=== PATIENT | female | born 1940 | race Caucasian/White ===

== ENCOUNTER → 2019-06-19 | Outpatient (CLI) | payer MEDICARE, OTHER ==
[~2019-06-19] MED LIST: ALPR.5 PO; Advil200 M1 PO; CYCL10 PO; DULO30 PO; IBUP600 PO; METO25ER PO; MOMENI; Norco 5-325 Ta1 EACH PO; OLME20 PO; Questran4 GM PO; TRAM50 PO
== END ==
LOC: LAB EV 16:30 → LAB SHORT 16:30
DX: M50.30 Other cervical disc degeneration, unspecified cervical region (principal); M51.36 Other intervertebral disc degeneration, lumbar region; M17.9 Osteoarthritis of knee, unspecified; G89.4 Chronic pain syndrome
CPT/HCPCS: G0480

== ENCOUNTER → 2019-12-20 | Outpatient (CLI) | payer MEDICARE, OTHER | END | disposition home or self-care (01) | LOC: LAB SHORT 17:46 → LAB EV 17:46 | DX: N39.0 Urinary tract infection, site not specified (principal) | CPT/HCPCS: 87077; 87086; 87186 ==

== ENCOUNTER → 2020-01-02 | Outpatient (CLI) | payer MEDICARE, OTHER | END | disposition home or self-care (01) | LOC: LAB SHORT 16:31 → LAB EV 16:31 | DX: N39.0 Urinary tract infection, site not specified (principal) | CPT/HCPCS: 87086 ==

== ENCOUNTER → 2020-02-12 | Outpatient (CLI) | payer MEDICARE, OTHER | LOC: LAB SHORT 15:30 → LAB EV 15:30 | DX: R35.0 Frequency of micturition (principal) | CPT/HCPCS: 87086 ==

== ENCOUNTER → 2020-05-05 | Outpatient (CLI) | payer MEDICARE, OTHER ==
[~2020-05-05] MED LIST changes: +ALLEGRA ALLERG180 MG PO; +Avapro300 MG PO; +ESCI20 PO; +PROP10 PO; +Percocet 5-3251 EACH PO; +SUMA25 PO; +VITAMIN D32000 UNIT PO; +XARELTO10 M3 PO
== END ==
LOC: LAB 08:46 → LAB SHORT 08:46
DX: D48.5 Neoplasm of uncertain behavior of skin (principal)
CPT/HCPCS: 88305

== ENCOUNTER → 2020-06-26 | Outpatient (CLI) | payer MEDICARE, OTHER | END | disposition home or self-care (01) | LOC: LAB 18:48 → LAB SHORT 18:48 | DX: R30.9 Painful micturition, unspecified (principal) | CPT/HCPCS: 87086 ==

== ENCOUNTER 2020-07-01 09:33 | Day surgery (SDC) | payer MEDICARE, OTHER ==
[~2020-07-01] VITALS: Ht 167.6 cm; Wt 116.6 kg
[~2020-07-01 09:33] MED LIST changes: -ALLEGRA ALLERG180 MG PO; -Avapro300 MG PO; -ESCI20 PO; -PROP10 PO; -Percocet 5-3251 EACH PO; -SUMA25 PO; -VITAMIN D32000 UNIT PO; -XARELTO10 M3 PO
[2020-07-01] MEDS ORDERED: PROP10 PO (10:23)
[2020-07-01] MEDS ORDERED: ESCI20 PO (10:23)
[2020-07-01] MEDS ORDERED: Avapro300 MG PO (10:24)
[2020-07-01] MEDS ORDERED: SUMA25 PO (10:25)
[2020-07-01] MEDS ORDERED: VITAMIN D32000 UNIT PO (10:25)
[2020-07-01] MEDS ORDERED: ALLEGRA ALLERG180 MG PO (10:26)
--- NOTE | 2020-07-01 10:50 | NUR ---
PT TO SDS VIA . History, Chart, Medications and Allergies reviewed before start of procedure. Lungs clear T/O to Auscultation. Patient confirms NPO status and agrees with scheduled surgery. Patient reports completing Chlorhexadine shower X2 prior to admission to hospital. PT REPORTS INCONTINCE, RESTROOM USED PRIOR TO ADMISSION. UNDERWEAR AND PAD IN PLACE AT THIS TIME.
[2020-07-02 04:23] LABS: BASOPHILS ABSOLUTE AUTO 0.03 K/mm3 (0.00-0.23); BASOPHILS PERCENT AUTO 0 % (0-2); EOSINOPHILS PERCENT AUTO 0 % (0-6); Hematocrit 41.7 % (33.0-51.0); Hemoglobin 13.6 g/dL (11.5-16.0); IMMATURE GRAN ABSOLUTE AUTO 0.09 K/mm3 (0.00-0.10); IMMATURE GRAN PERCENT AUTO 0 % (0-1); LYMPHOCYTES ABSOLUTE AUTO 1.23 K/mm3 (0.84-5.20); LYMPHOCYTES PERCENT AUTO 6 % (21-46); MONOCYTES ABSOLUTE AUTO 1.06 K/mm3 (0.16-1.47); MONOCYTES PERCENT AUTO 5 % (4-13); Mean Corpuscular HGB 31.7 pg (26.0-34.0); Mean Corpuscular HGB Conc 32.6 g/dL (31.5-36.5); Mean Corpuscular Volume 97 fL (80-100); Mean Platelet Volume 10.6 fL (9.1-12.4); NEUTROPHILS ABSOLUTE AUTO 19.13 K/mm3 (1.96-9.15); NEUTROPHILS PERCENT AUTO 89 % (41-73); Platelet Count 260 K/mm3 (150-400); RDW Coefficient Variation 13.2 % (11.7-14.2); RDW Standard Deviation 47.8 fL (35.1-46.3); Red Blood Cell Count 4.29 M/mm3 (3.80-5.20); White Blood Cell Count 21.54 K/mm3 (4.00-11.30)
[2020-07-02 04:40] LABS: Calcium, Blood 8.9 mg/dL (8.5-10.1); Creatinine, Blood 1.08 mg/dL (0.40-1.00); Potassium, Blood 4.8 mmol/L (3.5-5.5)
--- NOTE | 2020-07-02 05:47 | NUR ---
SHIFT SUMMARY LYING IN SEMI FOWLERS WITH EYES CLOSED, HAS RESTED WELL THROUGHOUT SHIFT. MEDICATED FOR PAIN WITH OXY X1. POLAR JA IN PLACE TO SURGICAL SITE AND PT REPOSITIONES FOR COMFORT. ASSISTED TO BATHROOM SEVERAL TWICE TO URINATE. LEFT FA SL POWERGLIDE IS PATENT, FLUSHES WITH EASE WHEN PULLED BACK ON GENTLY, APPEARS POSITIONAL. AQUACEL AND TERRELL WRAP TO LEFT KNEE ARE C/D/I. GOOD DISTAL PULSES NOTED. ABLE TO WIGGLE TOES WITH EASE. DENIES FURTHER NEEDS OR WANTS AT THIS TIME. SAFETY MEASURES IN PLACE. WILL CONTINUE TO MONITOR AND GIVE HAND OFF TO ONCOMING SHIFT USING SBAR DURING BEDSIDE REPORT.
[2020-07-02] MEDS ORDERED: Percocet 5-3251 EACH PO (13:48)
[2020-07-02] MEDS ORDERED: XARELTO10 M3 PO (13:49)
--- NOTE | 2020-07-02 14:10 | NUR ---
DISCHARGE PT CLEARED THERAPY. PAIN WELL CONTROLLED. EATING, DRINKING, VOIDING WELL. SCRIPTS, DRSGS, & POLAR PACK SENT. ESCORTED OUT VIA W/C.
== END 2020-07-02 14:27 | disposition home or self-care (01) ==
LOC: ORSCMMR 09:33 → ORD 10:45 → ORSCMMR 10:45 → ORD 11:00 → SURS 14:42 → ORSCMMR 07-02 14:27 → SURS 07-02 14:27
PROVIDERS: Orthopaedic Surgery
PROC: 0SRD0JA Replacement of Left Knee Joint with Synthetic Substitute, Uncemented, Open Approach (ICD-10-PCS; principal; 2020-07-01 10:45)
PROC: 8E0Y0CZ Robotic Assisted Procedure of Lower Extremity, Open Approach (ICD-10-PCS; principal; 2020-07-01 10:45)
DX: M17.12 Unilateral primary osteoarthritis, left knee (principal); I10 Essential (primary) hypertension; E78.5 Hyperlipidemia, unspecified; G47.33 Obstructive sleep apnea (adult) (pediatric); K21.9 Gastro-esophageal reflux disease without esophagitis; E03.9 Hypothyroidism, unspecified; M79.7 Fibromyalgia; E66.01 Morbid (severe) obesity due to excess calories; Z68.41 Body mass index [BMI] 40.0-44.9, adult; Z79.899 Other long term (current) drug therapy
CPT/HCPCS: 27447; S2900; 36415; 73560-LT; 80048; 85025; 88300; 97110; 97116; 97161; 97530; A9270; C1776; J0171; J0690; J0735; J1100; J1885; J2250; J2370; J2405; J2704; J2795; J3010; J7120

== ENCOUNTER → 2020-07-09 | Outpatient (CLI) | payer MEDICARE, OTHER ==
[~2020-07-09] MED LIST changes: +ALLEGRA ALLERG180 MG PO; +Avapro300 MG PO; +ESCI20 PO; +PROP10 PO; +Percocet 5-3251 EACH PO; +SUMA25 PO; +VITAMIN D32000 UNIT PO; +XARELTO10 M3 PO
[2020-07-09 11:59] LABS: Source, Urine Clean Catch
[2020-07-09 12:05] LABS: Appearance, Urine Clear (Clear); Bilirubin, Urine Neg (Neg); Blood, Urine Neg (Neg); Color, Urine Yellow (P-Yellow); Glucose Qualitative, Urine Neg (Normal); Ketones, Urine Neg (Neg); Leukocyte Esterase, Urine Neg (Neg); Nitrite, Urine Neg (Neg); Protein, Urine Neg (Neg); Specific Gravity, Urine 1.015 (1.003-1.022); Urobilinogen, Urine 1+ (Normal)
== END ==
LOC: LAB SHORT 09:00 → LAB EV 09:00 → LAB FUT 07-08 16:40
PROVIDERS: Physician Assistant
DX: R35.8 Other polyuria (principal)
CPT/HCPCS: 81003

== ENCOUNTER → 2020-10-29 | Outpatient (CLI) | payer MEDICARE, OTHER | LOC: LAB SHORT 14:55 → LAB 14:55 | DX: R35.8 Other polyuria (principal); Z88.0 Allergy status to penicillin; Z88.1 Allergy status to other antibiotic agents; Z88.5 Allergy status to narcotic agent; Z91.018 Allergy to other foods | CPT/HCPCS: 87077; 87086; 87186 ==

== ENCOUNTER → 2020-12-15 | Outpatient (CLI) | payer MEDICARE, OTHER ==
[2020-12-15 17:17] LABS: Source, Urine Clean Catch
[2020-12-15 18:29] LABS: Appearance, Urine Clear (Clear); Blood, Urine 1+ (Neg); Color, Urine Yellow (P-Yellow); Glucose Qualitative, Urine Neg (Neg); Ketones, Urine Neg (Neg); Leukocyte Esterase, Urine 1+ (Neg); Nitrite, Urine Neg (Neg); Protein, Urine 2+ (Neg); Specific Gravity, Urine 1.025 (1.003-1.022); Urobilinogen, Urine NORM (Normal)
[2020-12-15 18:59] LABS: Bilirubin, Urine 1+ (Neg)
[2020-12-15 19:00] LABS: Bacteria Mod /hpf; Mucus Light (0-Heavy); Red Blood Cells, Urine 0-2 /hpf (0-2); Squamous Epithelial Cells Few /hpf (Few)
== END | disposition home or self-care (01) ==
LOC: LAB SHORT 17:15 → LAB 17:15
PROVIDERS: Obstetrics & Gynecology
DX: R39.15 Urgency of urination (principal)
CPT/HCPCS: 81001; 87086

== ENCOUNTER → 2021-09-21 | Outpatient (CLI) | payer MEDICARE, OTHER ==
[2021-09-21 17:34] LABS: Source, Urine Clean Catch
[2021-09-21 19:51] LABS: Appearance, Urine Hazy (Clear); Bilirubin, Urine Neg (Neg); Blood, Urine Neg (Neg); Color, Urine Yellow (P-Yellow); Glucose Qualitative, Urine Neg (Neg); Ketones, Urine Neg (Neg); Leukocyte Esterase, Urine 1+ (Neg); Nitrite, Urine Neg (Neg); Protein, Urine 2+ (Neg); Specific Gravity, Urine 1.025 (1.003-1.022); Urobilinogen, Urine NORM (Normal)
[2021-09-21 20:06] LABS: Squamous Epithelial Cells Mod /hpf (Few)
[2021-09-21 20:07] LABS: Bacteria Many /hpf; Hyaline Casts 0-2 /lpf (0-2); Red Blood Cells, Urine 0-2 /hpf (0-2)
== END | disposition home or self-care (01) ==
LOC: LAB SHORT 17:32
PROVIDERS: Obstetrics & Gynecology
DX: R39.15 Urgency of urination (principal)
CPT/HCPCS: 81001; 87077; 87086; 87186

== ENCOUNTER → 2022-12-17 | Outpatient (CLI) | payer MEDICARE, OTHER ==
[2022-12-17 17:44] LABS: Albumin, Blood 3.3 g/dL (3.4-5.0); Anion Gap 11 mmol/L (6-16); Blood Urea Nitrogen 28 mg/dL (8-24); CO2, Blood 25 mmol/L (21-32); Calcium, Blood 9.1 mg/dL (8.5-10.1); Chloride, Blood 104 mmol/L (98-108); Creatinine, Blood 1.12 mg/dL (0.40-1.00); Free Thyroxine 1.11 ng/dL (0.70-1.60); Glomerular Filtration Rate 49 (60-); Glucose, Blood 107 mg/dL (70-99); Magnesium, Blood 2.1 mg/dL (1.6-2.4); Phosphorus, Blood 3.3 mg/dL (2.5-4.9); Potassium, Blood 4.4 mmol/L (3.5-5.5); Sodium, Blood 140 mmol/L (136-145); Thyroid Stimulating Hormone 1.231 uIU/mL (0.360-4.800)
== END | disposition home or self-care (01) ==
LOC: LAB SHORT 17:21 → LAB 17:21
PROVIDERS: Chiropractor
DX: E55.9 Vitamin D deficiency, unspecified (principal); E05.90 Thyrotoxicosis, unspecified without thyrotoxic crisis or storm
CPT/HCPCS: 80069; 82306; 83735; 84439; 84443

== ENCOUNTER → 2023-05-17 | Outpatient (CLI) | payer MEDICARE, OTHER ==
[2023-05-17 15:23] LABS: Creatinine, Urine Random 53.1 mg/dL (27.00-270.00); Protein, Urine Random 10.8 mg/dL (0.0-11.9); Protein/Creat Ratio, Ur Random 0.2
== END ==
LOC: LAB SHORT 05-16 16:00 → LAB 05-16 16:00
PROVIDERS: Hospitalist
DX: N18.32 Chronic kidney disease, stage 3b (principal)
CPT/HCPCS: 82570; 84156

== ENCOUNTER → 2023-10-11 | Outpatient (CLI) | payer MEDICARE, OTHER ==
[~2023-10-11] MED LIST changes: +ACET325 PO; +ALENDRONATE SOD35 M6 PO; +Atarax10 MG PO; +Bumetanide2 MG PO; +FLUTICASONE-SA1 EAC9 INH; +IMITREX50 M2 PO; +KLOR-CON 1010 ME9 PO; +METHIMAZOLE5 M1 PO; +MICONAZOLE NITR85 GM TOP; +SPIRONOLACTONE25 MG PO; +TOPROL XL50 MG PO; +TRIDERM28.4 GM TOP; +VITAMIN D5000 UNIT PO
[2023-10-11 17:55] LABS: BASOPHILS ABSOLUTE AUTO 0.08 K/mm3 (0.00-0.23); BASOPHILS PERCENT AUTO 1 % (0-2); EOSINOPHILS ABSOLUTE AUTO 0.22 K/mm3 (0.00-0.68); EOSINOPHILS PERCENT AUTO 2 % (0-6); Hematocrit 42.6 % (33.0-51.0); Hemoglobin 14.8 g/dL (11.5-16.0); IMMATURE GRAN ABSOLUTE AUTO 0.13 K/mm3 (0.00-0.10); IMMATURE GRAN PERCENT AUTO 1 % (0-1); LYMPHOCYTES ABSOLUTE AUTO 1.18 K/mm3 (0.84-5.20); LYMPHOCYTES PERCENT AUTO 11 % (21-46); MONOCYTES ABSOLUTE AUTO 1.06 K/mm3 (0.16-1.47); MONOCYTES PERCENT AUTO 10 % (4-13); Mean Corpuscular HGB 33.7 pg (26.0-34.0); Mean Corpuscular HGB Conc 34.7 g/dL (31.5-36.5); Mean Corpuscular Volume 97 fL (80-100); NEUTROPHILS ABSOLUTE AUTO 8.09 K/mm3 (1.96-9.15); NEUTROPHILS PERCENT AUTO 75 % (41-73); NRBC ABSOLUTE 0.02 K/mm3 (0.00-0.02); NRBC Auto 0.2 /100 WBC (0.0-0.2); RDW Coefficient Variation 14.2 % (11.7-14.2); RDW Standard Deviation 50.8 fL (35.1-46.3); Red Blood Cell Count 4.39 M/mm3 (3.80-5.20); White Blood Cell Count 10.76 K/mm3 (4.00-11.30)
[2023-10-11 17:57] LABS: Albumin, Blood 3.5 g/dL (3.4-5.0); Albumin/Globulin Ratio 0.7 (0.8-1.8); Bilirubin, Total 0.9 mg/dL (0.1-1.0); Bun/Creatinine Ratio 32.3 (12.0-20.0); Calcium, Blood 10.5 mg/dL (8.5-10.1); Creatinine, Blood 1.95 mg/dL (0.40-1.00); Globulin, Blood 4.8 g/dL (2.2-4.0); Total Protein, Blood 8.3 g/dL (6.4-8.2)
[2023-10-11 18:49] LABS: Mean Platelet Volume 11.8 fL (9.1-12.4); Platelet Count 228 K/mm3 (150-400)
== END | disposition home or self-care (01) ==
LOC: LAB EV 16:38 → LAB SHORT 16:38
PROVIDERS: Family Medicine
DX: I10 Essential (primary) hypertension (principal)
CPT/HCPCS: 80053; 85025

== ENCOUNTER 2023-11-04 18:05 | Inpatient (IN) | payer MEDICARE, OTHER ==
[~2023-11-04] VITALS: Ht 167.6 cm; Wt 141.3 kg
[2023-11-04 19:03] LABS: BASOPHILS ABSOLUTE AUTO 0.07 K/mm3 (0.00-0.23); BASOPHILS PERCENT AUTO 1 % (0-2); EOSINOPHILS ABSOLUTE AUTO 0.18 K/mm3 (0.00-0.68); EOSINOPHILS PERCENT AUTO 1 % (0-6); Hematocrit 45.8 % (33.0-51.0); Hemoglobin 15.1 g/dL (11.5-16.0); IMMATURE GRAN ABSOLUTE AUTO 0.16 K/mm3 (0.00-0.10); IMMATURE GRAN PERCENT AUTO 1 % (0-1); LYMPHOCYTES PERCENT AUTO 10 % (21-46); MONOCYTES ABSOLUTE AUTO 1.65 K/mm3 (0.16-1.47); MONOCYTES PERCENT AUTO 11 % (4-13); Mean Corpuscular HGB 33.6 pg (26.0-34.0); Mean Corpuscular Volume 102 fL (80-100); Mean Platelet Volume 10.9 fL (9.1-12.4); NEUTROPHILS ABSOLUTE AUTO 11.17 K/mm3 (1.96-9.15); NEUTROPHILS PERCENT AUTO 76 % (41-73); NRBC ABSOLUTE 0.02 K/mm3 (0.00-0.02); NRBC Auto 0.1 /100 WBC (0.0-0.2); Platelet Count 189 K/mm3 (150-400); RDW Coefficient Variation 14.8 % (11.7-14.2); RDW Standard Deviation 55.1 fL (35.1-46.3); White Blood Cell Count 14.63 K/mm3 (4.00-11.30)
[2023-11-04 19:26] LABS: Albumin, Blood 2.9 g/dL (3.4-5.0); Albumin/Globulin Ratio 0.5 (0.8-1.8); Bilirubin, Total 1.1 mg/dL (0.1-1.0); Bun/Creatinine Ratio 25.3 (12.0-20.0); Calcium, Blood 9.5 mg/dL (8.5-10.1); Creatinine, Blood 1.94 mg/dL (0.40-1.00); Globulin, Blood 5.5 g/dL (2.2-4.0); Potassium, Blood 4.2 mmol/L (3.5-5.5); Total Protein, Blood 8.4 g/dL (6.4-8.2)
[2023-11-04 19:34] LABS: Influenza A, PCR NEGATIVE (NEGATIVE); Influenza B, PCR NEGATIVE (NEGATIVE); Resp Syncytial Virus, PCR NEGATIVE (NEGATIVE); SARS-Cov-2 (COVID-19) PCR, MMC NEGATIVE (NEGATIVE)
[2023-11-04] MEDS ORDERED: NS 1,000 ML IV SCH (20:40)
[2023-11-04 20:57] LABS: Thyroid Stimulating Hormone 0.959 uIU/mL (0.360-4.800)
[2023-11-04] MEDS ORDERED: Diltiazem HCl 5 MG / ML 5ML Vial IV ONE ×2 (21:15→22:50)
[2023-11-04] MEDS ORDERED: dilTIAZem HCL 100 MG in NS 100 ML IV SCH (22:50)
[2023-11-04] MEDS ORDERED: Furosemide 10 MG/ML 4ML Vial IV ONE (22:50)
[2023-11-05] VITALS (23 sets, daily range): BP systolic 92–160; BP diastolic 55–139
[2023-11-05] MEDS ORDERED: Bisacodyl 10 MG Supp PR PRN ×2 (00:50→01:35)
[2023-11-05] MEDS ORDERED: Acetaminophen 325 MG TABLET PO PRN ×2 (00:50→01:35)
[2023-11-05] MEDS ORDERED: Magnesium Hydroxide Conc 10 ML UDC PO PRN ×2 (00:50→01:35)
[2023-11-05] MEDS ORDERED: Triamcinolone 0.1% Lotion 60 GM TOP PRN ×2 (01:05→01:35)
[2023-11-05] MEDS ORDERED: SUMAtriptan succinate 50 MG Tab PO PRN ×2 (01:05→01:35)
[2023-11-05] MEDS ORDERED: Mometasone/Formoterol MDI 200/5 mcg 13 GM INH SCH (01:25)
[2023-11-05] MEDS ORDERED: LevoFLOXacin 750 MG/D5W 150ML 150 ML IV SCH (03:00)
[2023-11-05 04:00] LABS: BASOPHILS ABSOLUTE AUTO 0.05 K/mm3 (0.00-0.23); BASOPHILS PERCENT AUTO 0 % (0-2); EOSINOPHILS ABSOLUTE AUTO 0.12 K/mm3 (0.00-0.68); EOSINOPHILS PERCENT AUTO 1 % (0-6); Hematocrit 39.3 % (33.0-51.0); Hemoglobin 13.1 g/dL (11.5-16.0); IMMATURE GRAN ABSOLUTE AUTO 0.13 K/mm3 (0.00-0.10); IMMATURE GRAN PERCENT AUTO 1 % (0-1); LYMPHOCYTES ABSOLUTE AUTO 1.34 K/mm3 (0.84-5.20); LYMPHOCYTES PERCENT AUTO 10 % (21-46); MONOCYTES ABSOLUTE AUTO 1.27 K/mm3 (0.16-1.47); MONOCYTES PERCENT AUTO 9 % (4-13); Mean Corpuscular HGB 33.6 pg (26.0-34.0); Mean Corpuscular HGB Conc 33.3 g/dL (31.5-36.5); Mean Corpuscular Volume 101 fL (80-100); Mean Platelet Volume 10.3 fL (9.1-12.4); NEUTROPHILS ABSOLUTE AUTO 10.66 K/mm3 (1.96-9.15); NEUTROPHILS PERCENT AUTO 78 % (41-73); NRBC ABSOLUTE 0.03 K/mm3 (0.00-0.02); NRBC Auto 0.2 /100 WBC (0.0-0.2); Platelet Count 192 K/mm3 (150-400); RDW Coefficient Variation 14.9 % (11.7-14.2); RDW Standard Deviation 54.2 fL (35.1-46.3); White Blood Cell Count 13.57 K/mm3 (4.00-11.30)
[2023-11-05 04:18] LABS: Albumin, Blood 2.6 g/dL (3.4-5.0); Albumin/Globulin Ratio 0.6 (0.8-1.8); Bun/Creatinine Ratio 25.4 (12.0-20.0); Calcium, Blood 9.3 mg/dL (8.5-10.1); Creatinine, Blood 1.89 mg/dL (0.40-1.00); Globulin, Blood 4.4 g/dL (2.2-4.0); Potassium, Blood 3.6 mmol/L (3.5-5.5)
--- NOTE | 2023-11-05 06:44 | NUR ---
SHIFT SUMMARY PATIENT ARRIVED TO PCU 05 VIA STRETCHER AT 0100. PATIENT ALERT AND ORIENTED X4. SLIDE TRANSFER COMPLETED. PATIENT ARRIVED ON A CARDIZEM DRIP RUNNING AT 15, PATIENT HAS NOW BEEN TITRATED DOWN TO 5 WITH HEART RATE IN THE 90'S. BLOOD PRESSURE STABLE. ON ROOM AIR WITH SPO2 >90%. NO ACUTE ISSUES NOTED OVERNIGHT. WILL CONTINUE TO MONITOR. CALL LIGHT WITHIN REACH.
[2023-11-05] MEDS ORDERED: Citalopram Hydrobromide 20 MG Tab PO SCH (09:00)
[2023-11-05] MEDS ORDERED: Metoprolol Succinate 50 MG TABCR PO SCH ×2 (09:00)
[2023-11-05] MEDS ORDERED: Docusate Sodium 100 MG Cap PO SCH ×2 (09:00)
[2023-11-05] MEDS ORDERED: Lactobacil 2-S.Thermo-Bifido 1 1 Cap PO SCH ×2 (09:00)
[2023-11-05] MEDS ORDERED: Heparin Sodium,Porcine 5,000 UNIT/0.5 ML SDV SC SCH ×2 (09:00)
[2023-11-05] MEDS ORDERED: Sennosides 8.6 MG Tab PO SCH ×2 (09:00)
[2023-11-05] MEDS ORDERED: Cholecalciferol 1000 Unit Tablet (=25MCG) PO SCH ×2 (09:00)
[2023-11-05] MEDS ORDERED: Benzonatate 100 MG Cap PO PRN (10:30)
[2023-11-05] MEDS ORDERED: Ondansetron HCl 2 MG / ML 2ML Vial IV PRN (10:50)
[2023-11-05] MEDS ORDERED: Bumetanide 0.25 MG/ML 4ML ViaL IV SCH (15:00)
--- NOTE | 2023-11-05 17:53 | NUR ---
SHIFT SUMMARY A&Ox4, CALLS AND COMMUNICATES NEEDS APPROPRIATELY. IN/CONTINENT OF URINE, PUREWICK IN PLACE. NO BM THIS SHIFT. BP STALBE, AFLUTTER 80-100's, DENIES CP/PRESSURE. DILT gtt IN STANDBY SINCE START OF SHIFT. Q2 TURNS PROVIDED. PT WITH C/O COUGH, NOTIFIED MD, ORDERS PLACED. SpO2> 92% RA, DENIES SOB. NO OTHER EVENTS WILL REPORT TO ONCOMING RN.
[2023-11-05 20:59] LABS: Anti-Xa UFH, PHA Monitoring <0.10 IU/mL; Prothrombin Time Results 11.7 Sec (9.7-11.5)
[2023-11-05] MEDS ORDERED: Heparin Sodium,Porcine/0.5 NS 500 ML IV SCH (21:10)
[2023-11-06 04:09] VITALS: BP 125/90
[2023-11-06 04:20] LABS: BASOPHILS ABSOLUTE AUTO 0.07 K/mm3 (0.00-0.23); BASOPHILS PERCENT AUTO 1 % (0-2); EOSINOPHILS ABSOLUTE AUTO 0.18 K/mm3 (0.00-0.68); EOSINOPHILS PERCENT AUTO 1 % (0-6); Hematocrit 37.1 % (33.0-51.0); Hemoglobin 12.4 g/dL (11.5-16.0); IMMATURE GRAN ABSOLUTE AUTO 0.19 K/mm3 (0.00-0.10); IMMATURE GRAN PERCENT AUTO 2 % (0-1); LYMPHOCYTES ABSOLUTE AUTO 1.59 K/mm3 (0.84-5.20); LYMPHOCYTES PERCENT AUTO 12 % (21-46); MONOCYTES ABSOLUTE AUTO 1.61 K/mm3 (0.16-1.47); MONOCYTES PERCENT AUTO 12 % (4-13); Mean Corpuscular HGB 33.2 pg (26.0-34.0); Mean Corpuscular HGB Conc 33.4 g/dL (31.5-36.5); Mean Corpuscular Volume 100 fL (80-100); Mean Platelet Volume 10.2 fL (9.1-12.4); NEUTROPHILS ABSOLUTE AUTO 9.43 K/mm3 (1.96-9.15); NEUTROPHILS PERCENT AUTO 72 % (41-73); NRBC ABSOLUTE 0.02 K/mm3 (0.00-0.02); NRBC Auto 0.2 /100 WBC (0.0-0.2); Platelet Count 193 K/mm3 (150-400); RDW Coefficient Variation 14.6 % (11.7-14.2); RDW Standard Deviation 53.5 fL (35.1-46.3); Red Blood Cell Count 3.73 M/mm3 (3.80-5.20); White Blood Cell Count 13.07 K/mm3 (4.00-11.30)
--- NOTE | 2023-11-06 04:39 | NUR ---
PT IS ALERT AND ORIENTED X 4, COOPERATIVE WITH CARE AND ABLE TO MAKE NEEDS KNOWN. SHE IS ON RA AND MAINTAINING 02 SATURATION ABOVE 92%, SHE DENIES SOB. INTERMITTEND DRY COUGH. HR AFLUTTER 80'S-110'S, BP STABLE, AND SHE DENIES CHEST PAIN/PRESSURE. PW IN PLACE AND DRAINING SMALL AMOUNTS OF URINE, PT HAS HX STAGE 4 KIDNEY DISEASE. EDEMA NOTED TO EXTREMITIES. IV TO R HAND PATENT AND INFUSING HEP DRIP PER EMAR. POWERGLIDE TO L UPPER ARM IS PATENT, DRAWS, BUT IS POSITIONAL. PT HAS BEEN RESTING WELL THIS SHIFT WITH EVEN AND UNLABORED BREATHING. CALL LIGHT WITHIN REACH.
[2023-11-06 04:40] LABS: Albumin, Blood 2.3 g/dL (3.4-5.0); Albumin/Globulin Ratio 0.5 (0.8-1.8); Bilirubin, Total 0.7 mg/dL (0.1-1.0); Bun/Creatinine Ratio 24.9 (12.0-20.0); Calcium, Blood 8.9 mg/dL (8.5-10.1); Creatinine, Blood 1.77 mg/dL (0.40-1.00); Globulin, Blood 4.4 g/dL (2.2-4.0); Potassium, Blood 3.7 mmol/L (3.5-5.5); Total Protein, Blood 6.7 g/dL (6.4-8.2)
[2023-11-06 08:01] VITALS: BP 120/87
[2023-11-06] MEDS ORDERED: Spironolactone 25 MG Tab PO SCH (09:00)
[2023-11-06] MEDS ORDERED: Potassium Chloride 10 Meq Tablet SA PO SCH (09:00)
[2023-11-06] MEDS ORDERED: Losartan Potassium 25 MG Tab PO SCH (09:00)
[2023-11-06 11:16] VITALS: BP 120/93
[2023-11-06] MEDS ORDERED: Rivaroxaban 10 MG Tab PO SCH (12:55)
[2023-11-06 15:45] VITALS: BP 116/62
--- NOTE | 2023-11-06 18:03 | NUR ---
SHIFT SUMMARY A&Ox4, CALLS AND COMMUNICATES NEEDS APPROPRIATELY. IN/CONTINENT OF URINE, PUREWICK IN PLACE. CONTINENT OF BM THIS SHIFT, 2 ASSIST TO BSC. BP STABLE, AFLUTTER 80-100's UP TO 140's WHEN UP TO BSC (MD NOTIFED, ORDERS PLACED), DENIES CP/PRESSURE. Q2 TURNS PROVIDED. MANAGED C/O COUGH PER EMAR. SpO2> 92% RA, DENIES SOB. NO OTHER EVENTS WILL REPORT TO ONCOMING RN.
[2023-11-06 19:52] VITALS: BP 131/63
[2023-11-06] MEDS ORDERED: Metoprolol Succinate 50 MG TABCR PO SCH (21:00)
[2023-11-07 03:35] VITALS: BP 114/88
[2023-11-07 04:10] LABS: BASOPHILS ABSOLUTE AUTO 0.05 K/mm3 (0.00-0.23); BASOPHILS PERCENT AUTO 0 % (0-2); EOSINOPHILS ABSOLUTE AUTO 0.22 K/mm3 (0.00-0.68); EOSINOPHILS PERCENT AUTO 2 % (0-6); Hematocrit 36.3 % (33.0-51.0); Hemoglobin 12.4 g/dL (11.5-16.0); IMMATURE GRAN ABSOLUTE AUTO 0.24 K/mm3 (0.00-0.10); IMMATURE GRAN PERCENT AUTO 2 % (0-1); LYMPHOCYTES ABSOLUTE AUTO 1.66 K/mm3 (0.84-5.20); LYMPHOCYTES PERCENT AUTO 13 % (21-46); MONOCYTES ABSOLUTE AUTO 1.64 K/mm3 (0.16-1.47); MONOCYTES PERCENT AUTO 13 % (4-13); Mean Corpuscular HGB 33.6 pg (26.0-34.0); Mean Corpuscular HGB Conc 34.2 g/dL (31.5-36.5); Mean Corpuscular Volume 98 fL (80-100); Mean Platelet Volume 10.8 fL (9.1-12.4); NEUTROPHILS PERCENT AUTO 71 % (41-73); NRBC ABSOLUTE 0.02 K/mm3 (0.00-0.02); NRBC Auto 0.2 /100 WBC (0.0-0.2); Platelet Count 171 K/mm3 (150-400); RDW Coefficient Variation 14.7 % (11.7-14.2); RDW Standard Deviation 52.5 fL (35.1-46.3); Red Blood Cell Count 3.69 M/mm3 (3.80-5.20); White Blood Cell Count 13.11 K/mm3 (4.00-11.30)
--- NOTE | 2023-11-07 04:12 | NUR ---
SHIFT NOTE: PT A/OX4 ABLE TO USE CALL LIGHT TO MAKE NEEDS KNOWN. PUREWICK IN PLACE FOR URINARY INCONT. PT IN A FLUTTER 90-110S, DENIES CHEST PAIN/PRESSURE. SHE IS ON RA WITH SPO2>90%. DENIES SOB. WILL CONITNUE TO MONITOR AND REPORT TO ONCOMING RN
[2023-11-07 04:29] LABS: Albumin/Globulin Ratio 0.5 (0.8-1.8); Bilirubin, Total 0.7 mg/dL (0.1-1.0); Bun/Creatinine Ratio 4.2 (12.0-20.0); Calcium, Blood 8.6 mg/dL (8.5-10.1); Creatinine, Blood 1.66 mg/dL (0.40-1.00); Globulin, Blood 4.1 g/dL (2.2-4.0); Potassium, Blood 4.2 mmol/L (3.5-5.5); Total Protein, Blood 6.1 g/dL (6.4-8.2)
[2023-11-07 07:56] VITALS: BP 99/79
[2023-11-07 08:57] VITALS: BP 108/80
[2023-11-07 11:49] VITALS: BP 108/71
[2023-11-07 14:27] VITALS: BP 135/80
--- NOTE | 2023-11-07 17:42 | NUR ---
SHIFT SUMMARY NO ACUTE CHANGES THIS SHIFT. PT A&OX4. SP02>90% ON RA. C/O OF PRODUCTIVE COUGH, MEDICATED W/ TESSLON PERRLS X1. TELEMETRY SHOWS AFLUTTER HR 70'S-100'S. BP SOFT THIS AM. DIURESING, PURWIK TO SUCTION W/ YELLOW URINE. WORKED W/ PT, 2P W/ FWW. UP IN RECLINER SECOND HALF OF SHIFT. PT ABLE TO NAP IN AFTERNOON AND WAS PLEASED, STATED SHES BEEN HAVING A HARD TIME SLEEPING. C/O OF NAUSEA THIS SHIFT BUT DENIED NAUSEA MEDICATION. C/O OF ACHING PAIN ALL OVER, MEDICATED W/ TYLENOL X1. CURRENTLY IN RECLINER EATING DINNER. CALL LIGHT IN REACH.
[2023-11-07 20:12] VITALS: BP 136/63
[2023-11-08] VITALS (7 sets, daily range): BP systolic 97–130; BP diastolic 64–79
[2023-11-08 04:03] LABS: BASOPHILS ABSOLUTE AUTO 0.09 K/mm3 (0.00-0.23); BASOPHILS PERCENT AUTO 1 % (0-2); EOSINOPHILS ABSOLUTE AUTO 0.21 K/mm3 (0.00-0.68); EOSINOPHILS PERCENT AUTO 2 % (0-6); Hematocrit 40.5 % (33.0-51.0); Hemoglobin 13.3 g/dL (11.5-16.0); IMMATURE GRAN ABSOLUTE AUTO 0.34 K/mm3 (0.00-0.10); IMMATURE GRAN PERCENT AUTO 2 % (0-1); LYMPHOCYTES ABSOLUTE AUTO 1.76 K/mm3 (0.84-5.20); LYMPHOCYTES PERCENT AUTO 12 % (21-46); MONOCYTES ABSOLUTE AUTO 1.75 K/mm3 (0.16-1.47); MONOCYTES PERCENT AUTO 12 % (4-13); Mean Corpuscular HGB 32.9 pg (26.0-34.0); Mean Corpuscular HGB Conc 32.8 g/dL (31.5-36.5); Mean Corpuscular Volume 100 fL (80-100); Mean Platelet Volume 10.2 fL (9.1-12.4); NEUTROPHILS ABSOLUTE AUTO 10.03 K/mm3 (1.96-9.15); NEUTROPHILS PERCENT AUTO 71 % (41-73); NRBC ABSOLUTE 0.02 K/mm3 (0.00-0.02); NRBC Auto 0.1 /100 WBC (0.0-0.2); Platelet Count 237 K/mm3 (150-400); RDW Coefficient Variation 14.9 % (11.7-14.2); RDW Standard Deviation 55.5 fL (35.1-46.3); Red Blood Cell Count 4.04 M/mm3 (3.80-5.20); White Blood Cell Count 14.18 K/mm3 (4.00-11.30)
[2023-11-08 06:08] LABS: Albumin, Blood 2.2 g/dL (3.4-5.0); Albumin/Globulin Ratio 0.5 (0.8-1.8); Bilirubin, Total 0.6 mg/dL (0.1-1.0); Bun/Creatinine Ratio 24.2 (12.0-20.0); Calcium, Blood 9.1 mg/dL (8.5-10.1); Creatinine, Blood 1.82 mg/dL (0.40-1.00); Globulin, Blood 4.6 g/dL (2.2-4.0); Total Protein, Blood 6.8 g/dL (6.4-8.2)
--- NOTE | 2023-11-08 11:04 | NUR ---
UPDATE PT CALLED TO HAVE ASSISTANCE TO BSC. PT ABLE TO AMBULATED FROM BED TO BSC W/ 1 PERSON AND FWW. PT THEN ABLE TO TRANSFER FROM BSC TO RECLINER 1P W/ FWW.
--- NOTE | 2023-11-08 18:39 | NUR ---
SHIFT SUMMARY PT A&OX4. SP02>90% ON RA. PRODUCTIVE COUGH, TESSLON PERRLS GIVEN X2. TELEMETRY AT START OF SHIFT AFLUTTER HR 90'S. STEADILY INCREASED IN AFTERNOON, NOW AVG 120'S. MD AGUILAR NOTIFIED VIA PHONE. PT C/O OF GENERALIZED ACHE, MEDICATED W/ TYLENOL PER EMAR. PT UP TO BSC X2 TO HAVE BM. PT UP TO RECLINER SECOND HALF OF SHIFT, 1P ASSIST W/ FWW. PURWIK TO SUCTION. PT RESTING IN ROOM WATCHING TV. CALL LIGHT IN REACH.
--- NOTE | 2023-11-08 21:42 | NUR ---
PT ALERT AND ORIENTED X 4, COOPERATIVE WITH CARE AND ABLE TO MAKE NEEDS KNOWN. SHE IS CURRENTLY ON 2L NC BY RT PT'S OXYGEN SATURATION WAS HIGH 80'S/LOW 90'S. PT DENIES SOB. OCCASIONAL PRODUCTIVE COUGH, PT MEDICATED PER EMAR. HR AFIB/AFLUTTER 100'S-120'S, SHE DENIES CHEST PAIN/PRESSURE. BP STABLE. PW IN PLACE AND SET TO SUCTION, CHANGED PRN. EDEMA NOTED TO EXTREMITIES. PT ON 1999 FLUID RESTRICTION. PW TO KELLY IS POSITIONAL, FLUSHES BUT DOES NOT DRAW. Q2 TURNS. PT RESTING IN BED WATCHING TV. CALL LIGHT WITHIN REACH.
[2023-11-09 04:02] LABS: BASOPHILS PERCENT AUTO 1 % (0-2); EOSINOPHILS ABSOLUTE AUTO 0.17 K/mm3 (0.00-0.68); EOSINOPHILS PERCENT AUTO 1 % (0-6); Hematocrit 39.3 % (33.0-51.0); Hemoglobin 12.9 g/dL (11.5-16.0); IMMATURE GRAN ABSOLUTE AUTO 0.34 K/mm3 (0.00-0.10); IMMATURE GRAN PERCENT AUTO 2 % (0-1); LYMPHOCYTES ABSOLUTE AUTO 1.66 K/mm3 (0.84-5.20); LYMPHOCYTES PERCENT AUTO 11 % (21-46); MONOCYTES ABSOLUTE AUTO 1.71 K/mm3 (0.16-1.47); MONOCYTES PERCENT AUTO 12 % (4-13); Mean Corpuscular HGB 33.3 pg (26.0-34.0); Mean Corpuscular HGB Conc 32.8 g/dL (31.5-36.5); Mean Corpuscular Volume 102 fL (80-100); NEUTROPHILS ABSOLUTE AUTO 10.71 K/mm3 (1.96-9.15); NEUTROPHILS PERCENT AUTO 73 % (41-73); NRBC ABSOLUTE 0.02 K/mm3 (0.00-0.02); NRBC Auto 0.1 /100 WBC (0.0-0.2); Platelet Count 256 K/mm3 (150-400); RDW Coefficient Variation 15.1 % (11.7-14.2); RDW Standard Deviation 55.4 fL (35.1-46.3); Red Blood Cell Count 3.87 M/mm3 (3.80-5.20); White Blood Cell Count 14.69 K/mm3 (4.00-11.30)
[2023-11-09 04:26] LABS: Bun/Creatinine Ratio 27.2 (12.0-20.0); Calcium, Blood 8.9 mg/dL (8.5-10.1); Creatinine, Blood 1.58 mg/dL (0.40-1.00); Potassium, Blood 4.5 mmol/L (3.5-5.5)
--- NOTE | 2023-11-09 06:47 | NUR ---
NO ACUTE CHANGES, SEE PREVIOUS NOTE.
[2023-11-09 07:36] VITALS: BP 112/83
[2023-11-09] MEDS ORDERED: Metoprolol Succinate 50 MG TABCR PO SCH (09:00)
[2023-11-09] MEDS ORDERED: Losartan Potassium 25 MG Tab PO SCH (09:00)
[2023-11-09] MEDS ORDERED: Tessalon200 MG PO (10:51)
[2023-11-09] MEDS ORDERED: BUME2 PO (10:51)
[2023-11-09] MEDS ORDERED: LOSA25 PO (10:52)
[2023-11-09] MEDS ORDERED: XARELTO20 MG PO (10:53)
[2023-11-09] MEDS ORDERED: ALDACTONE25 MG PO (10:54)
[2023-11-09] MEDS ORDERED: Doxycycline Hyclate 100 MG in Dextrose 5% 250 ML IV SCH (13:00)
[2023-11-09] MEDS ORDERED: LevoFLOXacin 750 MG Tab PO ONE (13:00)
[2023-11-09] MEDS ORDERED: CefTRIAXone Sodium 1,000 MG in NS 100 ML IV SCH (13:00)
--- NOTE | 2023-11-09 13:39 | NUR ---
REPORT TO [facility] IN [place]. DISCHARGE PAPERWORK AND RX'S FAXED TO FACILITY BY CARE MANAGMENT. DC'D VIA WHEELCHAIR A/A/OX4.
== END 2023-11-09 13:10 | DRG 291 ==
LOC: ER 18:05 → PCU 21:44 → ER 11-05 01:08 → PCU 11-06 20:53
PROVIDERS: Emergency Medicine; Family Medicine; Internal Medicine; ADMIT Internal Medicine
DX: I13.0 Hypertensive heart and chronic kidney disease with heart failure and stage 1 through stage 4 chronic kidney disease, or unspecified chronic kidney disease (principal); I50.33 Acute on chronic diastolic (congestive) heart failure; N18.4 Chronic kidney disease, stage 4 (severe); I48.92 Unspecified atrial flutter; Z68.42 Body mass index [BMI] 45.0-49.9, adult; R05.3 Chronic cough; E66.01 Morbid (severe) obesity due to excess calories; F41.8 Other specified anxiety disorders; G43.109 Migraine with aura, not intractable, without status migrainosus; M85.80 Other specified disorders of bone density and structure, unspecified site; M19.90 Unspecified osteoarthritis, unspecified site; J45.40 Moderate persistent asthma, uncomplicated; R32 Unspecified urinary incontinence; Z88.0 Allergy status to penicillin; Z88.1 Allergy status to other antibiotic agents; Z88.5 Allergy status to narcotic agent; Z79.899 Other long term (current) drug therapy; Z87.81 Personal history of (healed) traumatic fracture; Z98.1 Arthrodesis status; Z90.49 Acquired absence of other specified parts of digestive tract; Z98.890 Other specified postprocedural states
CPT/HCPCS: 0241U; 36415; 71046; 80048; 80053; 83735; 83880; 84100; 84443; 84484; 85025; 85520; 85610; 85730; 93005; 93010; 94640; 94664; 94760; 94762; 96361; 96365; 96366; 96375; 96376; 97110; 97162; 99285-25; A9270; J1644; J1940; J1956; J2405; J7030

== ENCOUNTER → 2024-02-16 | Outpatient (CLI) | payer MEDICARE, OTHER ==
[~2024-02-16] MED LIST changes: +ALDACTONE25 MG PO; +BUME2 PO; +LOSA25 PO; +Tessalon200 MG PO; +XARELTO20 MG PO
[2024-02-16 16:02] LABS: Albumin, Blood 3.2 g/dL (3.4-5.0); Anion Gap 10 mmol/L (3-11); Blood Urea Nitrogen 28 mg/dL (8-24); CO2, Blood 24 mmol/L (21-32); Calcium, Blood 10.2 mg/dL (8.5-10.1); Chloride, Blood 107 mmol/L (98-108); Creatinine, Blood 1.12 mg/dL (0.40-1.00); Ferritin, Serum 79 ng/mL (8-252); Glomerular Filtration Rate 49 (60-); Glucose, Blood 152 mg/dL (70-99); Iron Serum 80 ug/dL (50-170); Percent Saturation 20.3 % (15.0-50.0); Phosphorus, Blood 3.3 mg/dL (2.5-4.9); Potassium, Blood 4.4 mmol/L (3.5-5.5); Sodium, Blood 137 mmol/L (136-145); Total Iron Binding Capacity 395 ug/dL (250-450); Uric Acid, Blood 8.9 mg/dL (2.6-6.0)
[2024-02-16 18:46] LABS: Protein, Urine Random 90.8 mg/dL (0.0-11.9); Protein/Creat Ratio, Ur Random 0.3
== END | disposition home or self-care (01) ==
LOC: LAB SHORT 15:09 → LAB 15:09
PROVIDERS: Hospitalist
DX: N18.4 Chronic kidney disease, stage 4 (severe) (principal); D63.1 Anemia in chronic kidney disease
CPT/HCPCS: 80069; 82570; 82728; 83540; 83550; 84156; 84550

== ENCOUNTER → 2024-03-01 | Outpatient (CLI) | payer MEDICARE, OTHER ==
[2024-03-01 17:19] LABS: BASOPHILS ABSOLUTE AUTO 0.06 K/mm3 (0.00-0.23); BASOPHILS PERCENT AUTO 1 % (0-2); EOSINOPHILS ABSOLUTE AUTO 0.12 K/mm3 (0.00-0.68); EOSINOPHILS PERCENT AUTO 2 % (0-6); Hematocrit 44.4 % (33.0-51.0); Hemoglobin 14.3 g/dL (11.5-16.0); IMMATURE GRAN ABSOLUTE AUTO 0.03 K/mm3 (0.00-0.10); IMMATURE GRAN PERCENT AUTO 0 % (0-1); LYMPHOCYTES ABSOLUTE AUTO 1.31 K/mm3 (0.84-5.20); LYMPHOCYTES PERCENT AUTO 17 % (21-46); MONOCYTES ABSOLUTE AUTO 0.66 K/mm3 (0.16-1.47); MONOCYTES PERCENT AUTO 9 % (4-13); Mean Corpuscular HGB 32.2 pg (26.0-34.0); Mean Corpuscular HGB Conc 32.2 g/dL (31.5-36.5); Mean Corpuscular Volume 100 fL (80-100); Mean Platelet Volume 10.1 fL (9.1-12.4); NEUTROPHILS ABSOLUTE AUTO 5.58 K/mm3 (1.96-9.15); NEUTROPHILS PERCENT AUTO 72 % (41-73); Platelet Count 265 K/mm3 (150-400); RDW Coefficient Variation 15.6 % (11.7-14.2); RDW Standard Deviation 57.7 fL (35.1-46.3); Red Blood Cell Count 4.44 M/mm3 (3.80-5.20); White Blood Cell Count 7.76 K/mm3 (4.00-11.30)
[2024-03-01 19:31] LABS: Anion Gap 12 mmol/L (3-11); Blood Urea Nitrogen 30 mg/dL (8-24); Bun/Creatinine Ratio 25.9 (12.0-20.0); CHOL/HDL RATIO 3.4; CO2, Blood 22 mmol/L (21-32); Calcium, Blood 10.4 mg/dL (8.5-10.1); Chloride, Blood 106 mmol/L (98-108); Cholesterol 135 mg/dL (50-200); Creatinine, Blood 1.16 mg/dL (0.40-1.00); Glomerular Filtration Rate 47 (60-); Glucose, Blood 121 mg/dL (70-99); HDL Cholesterol 40 mg/dL (>39); LDL/HDL RATIO 1.8; Low Density Lipoprotein Chol 71 mg/dL (0-110); Phosphorus, Blood 3.3 mg/dL (2.5-4.9); Potassium, Blood 3.9 mmol/L (3.5-5.5); Sodium, Blood 136 mmol/L (136-145); Thyroid Stimulating Hormone 0.288 uIU/mL (0.360-4.800); Triglycerides 120 mg/dL (30-160); Very Low Density Lipoprot Chol 24 mg/dL (6-32)
== END | disposition home or self-care (01) ==
LOC: LAB SHORT 14:46 → LAB 14:46
PROVIDERS: Family Medicine
DX: I50.32 Chronic diastolic (congestive) heart failure (principal); N18.32 Chronic kidney disease, stage 3b; E05.20 Thyrotoxicosis with toxic multinodular goiter without thyrotoxic crisis or storm
CPT/HCPCS: 80061; 80069; 83880; 84443; 85025

== ENCOUNTER 2024-03-16 15:53 | Emergency (ER) | payer MEDICARE, OTHER ==
[~2024-03-16] VITALS: Ht 167.6 cm; Wt 119.8 kg
[2024-03-16 17:11] LABS: BASOPHILS ABSOLUTE AUTO 0.06 K/mm3 (0.00-0.23); BASOPHILS PERCENT AUTO 1 % (0-2); EOSINOPHILS ABSOLUTE AUTO 0.16 K/mm3 (0.00-0.68); EOSINOPHILS PERCENT AUTO 2 % (0-6); Hematocrit 40.9 % (33.0-51.0); Hemoglobin 13.6 g/dL (11.5-16.0); IMMATURE GRAN ABSOLUTE AUTO 0.06 K/mm3 (0.00-0.10); IMMATURE GRAN PERCENT AUTO 1 % (0-1); LYMPHOCYTES PERCENT AUTO 15 % (21-46); MONOCYTES ABSOLUTE AUTO 0.81 K/mm3 (0.16-1.47); MONOCYTES PERCENT AUTO 8 % (4-13); Mean Corpuscular HGB Conc 33.3 g/dL (31.5-36.5); Mean Corpuscular Volume 99 fL (80-100); Mean Platelet Volume 9.8 fL (9.1-12.4); NEUTROPHILS ABSOLUTE AUTO 7.71 K/mm3 (1.96-9.15); NEUTROPHILS PERCENT AUTO 75 % (41-73); Platelet Count 355 K/mm3 (150-400); RDW Coefficient Variation 15.6 % (11.7-14.2); RDW Standard Deviation 56.9 fL (35.1-46.3); Red Blood Cell Count 4.12 M/mm3 (3.80-5.20)
[2024-03-16 17:19] LABS: International Normalized Ratio 1.28; Prothrombin Time Results 13.4 Sec (9.7-11.5)
[2024-03-16 18:09] VITALS: BP 114/61
== END 2024-03-16 18:11 | disposition home or self-care (01) ==
LOC: ER 15:53
PROVIDERS: Physician Assistant
DX: S80.01XA Contusion of right knee, initial encounter (principal); W18.30XA Fall on same level, unspecified, initial encounter; Z79.899 Other long term (current) drug therapy; Z79.51 Long term (current) use of inhaled steroids; Z88.0 Allergy status to penicillin; Z88.1 Allergy status to other antibiotic agents
CPT/HCPCS: 73590; 76882; 85025; 85610; 85730; 99284-25

== ENCOUNTER 2024-03-22 04:05 | Day surgery (SDC) | payer MEDICARE, OTHER ==
[2024-03-22] MEDS ORDERED: Lidocaine HCl 4% Cream 5 GM ONE (13:27)
== END 2024-03-22 23:00 | disposition home or self-care (01) ==
LOC: WOUND 04:05
DX: S81.802A Unspecified open wound, left lower leg, initial encounter (principal); J45.909 Unspecified asthma, uncomplicated; I25.10 Atherosclerotic heart disease of native coronary artery without angina pectoris; I25.2 Old myocardial infarction; M19.90 Unspecified osteoarthritis, unspecified site; I13.2 Hypertensive heart and chronic kidney disease with heart failure and with stage 5 chronic kidney disease, or end stage renal disease; N18.6 End stage renal disease; I50.9 Heart failure, unspecified; L08.9 Local infection of the skin and subcutaneous tissue, unspecified; Z88.0 Allergy status to penicillin; X58.XXXA Exposure to other specified factors, initial encounter
CPT/HCPCS: A9270; G0463

== ENCOUNTER 2024-03-27 01:13 | Day surgery (SDC) | payer MEDICARE, OTHER | END 2024-03-27 23:22 | disposition home or self-care (01) | LOC: WOUND 01:13 | DX: L97.222 Non-pressure chronic ulcer of left calf with fat layer exposed (principal); S81.802A Unspecified open wound, left lower leg, initial encounter; L08.9 Local infection of the skin and subcutaneous tissue, unspecified; N18.31 Chronic kidney disease, stage 3a; W22.8XXA Striking against or struck by other objects, initial encounter | CPT/HCPCS: A6213; G0463 ==

== ENCOUNTER 2024-04-02 02:17 | Day surgery (SDC) | payer MEDICARE, OTHER | END 2024-04-02 23:00 | disposition home or self-care (01) | LOC: WOUND 02:17 | DX: L97.222 Non-pressure chronic ulcer of left calf with fat layer exposed (principal); S81.802A Unspecified open wound, left lower leg, initial encounter; L08.9 Local infection of the skin and subcutaneous tissue, unspecified; N18.31 Chronic kidney disease, stage 3a; W19.XXXA Unspecified fall, initial encounter | CPT/HCPCS: A6213; G0463 ==

== ENCOUNTER 2024-04-09 05:45 | Day surgery (SDC) | payer MEDICARE, OTHER | END 2024-04-09 23:00 | disposition home or self-care (01) | LOC: WOUND 05:45 | DX: S81.802D Unspecified open wound, left lower leg, subsequent encounter (principal); L08.9 Local infection of the skin and subcutaneous tissue, unspecified; N18.31 Chronic kidney disease, stage 3a; X58.XXXD Exposure to other specified factors, subsequent encounter | CPT/HCPCS: A6213; G0463 ==

== ENCOUNTER 2024-04-16 03:24 | Day surgery (SDC) | payer MEDICARE, OTHER | END 2024-04-16 23:00 | disposition home or self-care (01) | LOC: WOUND 03:24 | DX: S81.802D Unspecified open wound, left lower leg, subsequent encounter (principal); L97.822 Non-pressure chronic ulcer of other part of left lower leg with fat layer exposed; L08.9 Local infection of the skin and subcutaneous tissue, unspecified; N18.31 Chronic kidney disease, stage 3a; X58.XXXD Exposure to other specified factors, subsequent encounter | CPT/HCPCS: A6213; G0463 ==

== ENCOUNTER 2024-04-23 05:39 | Day surgery (SDC) | payer MEDICARE, OTHER | END 2024-04-23 23:47 | disposition home or self-care (01) | LOC: WOUND 05:39 | DX: L97.222 Non-pressure chronic ulcer of left calf with fat layer exposed (principal); S81.802A Unspecified open wound, left lower leg, initial encounter; L08.9 Local infection of the skin and subcutaneous tissue, unspecified; N18.31 Chronic kidney disease, stage 3a; W22.8XXA Striking against or struck by other objects, initial encounter | CPT/HCPCS: A6213; G0463 ==

== ENCOUNTER 2024-04-30 03:33 | Day surgery (SDC) | payer MEDICARE, OTHER | END 2024-04-30 23:00 | disposition home or self-care (01) | LOC: WOUND 03:33 | DX: L97.822 Non-pressure chronic ulcer of other part of left lower leg with fat layer exposed (principal); S81.802A Unspecified open wound, left lower leg, initial encounter; L08.9 Local infection of the skin and subcutaneous tissue, unspecified; N18.31 Chronic kidney disease, stage 3a; X58.XXXA Exposure to other specified factors, initial encounter | CPT/HCPCS: A6213; G0463 ==

== ENCOUNTER 2024-05-07 03:50 | Day surgery (SDC) | payer MEDICARE, OTHER | END 2024-05-07 23:00 | disposition home or self-care (01) | LOC: WOUND 03:50 | DX: S81.802D Unspecified open wound, left lower leg, subsequent encounter (principal); X58.XXXD Exposure to other specified factors, subsequent encounter; L08.9 Local infection of the skin and subcutaneous tissue, unspecified; N18.31 Chronic kidney disease, stage 3a | CPT/HCPCS: G0463 ==

== ENCOUNTER 2024-05-16 05:33 | Day surgery (SDC) | payer MEDICARE, OTHER | END 2024-05-16 22:54 | disposition home or self-care (01) | LOC: WOUND 05:33 | DX: S81.802D Unspecified open wound, left lower leg, subsequent encounter (principal); X58.XXXD Exposure to other specified factors, subsequent encounter; N18.31 Chronic kidney disease, stage 3a | CPT/HCPCS: A6213; G0463 ==

== ENCOUNTER 2024-05-28 06:30 | Day surgery (SDC) | payer MEDICARE, OTHER | END 2024-05-28 23:00 | disposition home or self-care (01) | LOC: WOUND 06:30 | DX: S81.802D Unspecified open wound, left lower leg, subsequent encounter (principal); L97.822 Non-pressure chronic ulcer of other part of left lower leg with fat layer exposed; L08.9 Local infection of the skin and subcutaneous tissue, unspecified; N18.31 Chronic kidney disease, stage 3a; X58.XXXD Exposure to other specified factors, subsequent encounter | CPT/HCPCS: A6213; G0463 ==

== ENCOUNTER 2024-06-04 06:33 | Day surgery (SDC) | payer MEDICARE, OTHER | END 2024-06-04 23:00 | disposition home or self-care (01) | LOC: WOUND 06:33 | DX: S81.802D Unspecified open wound, left lower leg, subsequent encounter (principal); X58.XXXD Exposure to other specified factors, subsequent encounter; L08.9 Local infection of the skin and subcutaneous tissue, unspecified; N18.31 Chronic kidney disease, stage 3a | CPT/HCPCS: G0463 ==

== ENCOUNTER → 2025-01-14 | Outpatient (CLI) | payer MEDICARE, OTHER ==
[2025-01-14 13:39] LABS: Source, Urine Voided
[2025-01-14 14:15] LABS: Bilirubin, Urine Neg (Neg); Color, Urine Yellow (P-Yellow); Glucose Qualitative, Urine Neg (Neg); Ketones, Urine Neg (Neg); Leukocyte Esterase, Urine 3+ (Neg); Protein, Urine 2+ (Neg); Specific Gravity, Urine 1.020 (1.003-1.022); Urobilinogen, Urine NORM (Normal)
[2025-01-14 14:22] LABS: White Blood Cells, Urine TNTC /hpf (0-5)
[2025-01-14 14:23] LABS: Red Blood Cells, Urine 25-50 /hpf (0-2)
== END | disposition home or self-care (01) ==
LOC: LAB SHORT 12:03 → LAB 12:03
PROVIDERS: Hospitalist
DX: N18.32 Chronic kidney disease, stage 3b (principal); R82.90 Unspecified abnormal findings in urine
CPT/HCPCS: 81001; 87077; 87086; 87186